=== PATIENT | male | born 1965 | race African-American/Black ===

== ENCOUNTER 2016-11-13 18:42 | Emergency (ER) | payer OTHER ==
[~2016-11-13] VITALS: Ht 182.9 cm; Wt 113.4 kg
--- NOTE | ~2016-11-13 | EKG ---
[address] [address] ELECTROCARDIOGRAM REPORT Name: BERT ROPER [facility] [id number] Admission: 11/13/16 Attend Phys: Discharge: 11/13/16 Date of : 65 Report #: [id number] THIS REPORT FOR: //name// [facility] ED Test Date: 2016-11-13 Test Time: 20:57:51 Pat Name: BERT ROPER Department: Room: Gender: M Intermediate Teacher: MZOOK : 1965 Requested By: Eda Corrales Order Number: [id number] MD: Roderick Broden Measurements Intervals [place] Rate: 70 P: 60 DC: 158 QRS: 51 QRSD: 98 T: 31 QT: 376 QTc: 406 Interpretive Statements Sinus rhythm Probable left atrial enlargement Borderline ST elevation, anterolateral leads Baseline wander in lead(s) V3 Compared to ECG 06/25/2004 19:54:46 No significant changes Electronically Signed On 11-15-2016 22:13:05 CDT by Roderick Borden [email or web address] <ELECTRONICALLY SIGNED> By: Roderick Borden MD 11/15/162212 56 56 Roderick Borden MD /EPI
[2016-11-13] MEDS ORDERED: PREDNISONE 20 M20 MG PO (21:09)
[2016-11-13 21:14] VITALS: BP 128/75
== END 2016-11-13 21:17 | disposition home or self-care (01) ==
LOC: ER 18:42
DX: S61.011A Laceration without foreign body of right thumb without damage to nail, initial encounter (principal); W45.8XXA Other foreign body or object entering through skin, initial encounter; Y93.89 Activity, other specified; Y92.89 Other specified places as the place of occurrence of the external cause; Y99.8 Other external cause status

== ENCOUNTER 2019-09-10 16:43 | Emergency (ER) | payer OTHER ==
[~2019-09-10] VITALS: Ht 167.6 cm; Wt 86.2 kg
[~2019-09-10 16:43] MED LIST: PREDNISONE 20 M20 MG PO
[2019-09-10] MEDS ORDERED: NOHOMEMEDICATIONS (16:50)
[2019-09-10 17:34] LABS: HEMATOCRIT 42.2 % (42.0-52.0); HEMOGLOBIN 14.7 gm/dL (14.0-18.0); MCH 29.5 pg (26.0-34.0); MCHC 34.8 g/dL (28.0-37.0); MCV 84.9 fL (80.0-100.0); PLATELET COUNT 232 thou/uL (150-400); RBC 4.97 mil/uL (4.50-6.00); RDW 12.1 % (10.5-14.5); WBC 3.7 thou/uL (4.0-11.0)
[2019-09-10 17:51] LABS: CREATININE 1.5 mg/dL (0.7-1.3); POTASSIUM 3.9 mmol/L (3.5-5.1)
[2019-09-10 17:55] LABS: ABSOLUTE NEUTROPHILS 1.5 thou/uL (1.4-8.2)
[2019-09-10 17:56] LABS: PLATELET ESTIMATE NORMAL
[2019-09-10 18:41] VITALS: BP 124/87
== END 2019-09-10 18:42 | disposition home or self-care (01) ==
LOC: ER 16:43
PROVIDERS: Emergency Medicine
DX: R68.2 Dry mouth, unspecified (principal); R42 Dizziness and giddiness; R11.0 Nausea; K21.9 Gastro-esophageal reflux disease without esophagitis; Z87.891 Personal history of nicotine dependence; Z79.899 Other long term (current) drug therapy

== ENCOUNTER 2021-04-22 14:30 | Emergency (ER) | payer OTHER ==
[~2021-04-22] VITALS: Ht 167.6 cm; Wt 53.5 kg
[~2021-04-22 14:30] MED LIST changes: +NOHOMEMEDICATIONS
[2021-04-22 15:05] LABS: BASOPHILS 0.5 % (0.0-2.0); EOSINOPHILS 0.1 % (0.0-3.0); HEMATOCRIT 39.4 % (42.0-52.0); HEMOGLOBIN 13.6 gm/dL (14.0-18.0); LYMPHOCYTES 15.1 % (24.0-44.0); MCH 30.3 pg (26.0-34.0); MCHC 34.5 g/dL (28.0-37.0); MCV 87.8 fL (80.0-100.0); PLATELET COUNT 266 thou/uL (150-400); POLYS 70.3 % (36.0-66.0); RBC 4.48 mil/uL (4.50-6.00); RDW 12.2 % (10.5-14.5); WBC 5.7 thou/uL (4.0-11.0)
[2021-04-22 15:06] LABS: URINE BILIRUBIN 2+ (Negative); URINE BLOOD 1+ (Negative); URINE CLARITY CLEAR; URINE COLOR YELLOW; URINE GLUCOSE-RANDOM* NEGATIVE (Negative); URINE KETONES 2+ (Negative); URINE LEUKOCYTES-REFLEX NEGATIVE (Negative); URINE NITRITE-REFLEX NEGATIVE (Negative); URINE PROTEIN (DIPSTICK) 1+ (Negative); URINE SPECIFIC GRAVITY 1.025 (1.005-1.035); URINE UROBILINOGEN 0.2 E.U./dl (0.2-1.0)
[2021-04-22 15:12] LABS: ICTOTEST (BILI CONFIRMATORY) Positive (Negative)
[2021-04-22 15:14] LABS: CALCIUM 9.3 mg/dL (8.5-10.1); CREATININE 1.2 mg/dL (0.7-1.3); POTASSIUM 3.9 mmol/L (3.5-5.1)
[2021-04-22 15:18] LABS: CASTS None Seen /LPF (None Seen); SQUAMOUS 0-3 Few /LPF (0-3); URINE RBC 3-10 Few /HPF (NONE SEEN); URINE WBC-REFLEX 0-5 Rare /HPF (0-5)
[2021-04-22 15:19] LABS: BACTERIA-REFLEX None Seen /HPF (None Seen); CRYSTALS None Seen /LPF (None Seen)
[2021-04-22 15:24] LABS: ALBUMIN 3.2 g/dL (3.4-5.0); DIRECT BILIRUBIN 0.2 mg/dL (<0.1-0.2); TOTAL BILIRUBIN 0.7 mg/dL (0.2-1.0); TOTAL PROTEIN 7.6 g/dL (6.4-8.2)
[2021-04-22] MEDS ORDERED: ZOFRAN ODT4 MG PO (17:48)
[2021-04-22 17:56] VITALS: BP 115/68
--- NOTE | 2021-04-23 07:59 | EKG ---
[place] [address] [facility] [employer] [place] [address] ELECTROCARDIOGRAM REPORT Name: BERT ROPER [id number] Admission: 04/22/21 Attend Phys: Discharge: 04/22/21 Date of : 65 Report #: [id number] [facility] ED Test Date: 2021-04-22 Test Time: 15:10:34 Pat Name: BERT ROPER Department: Room: Gender: M Data Warehousing Engineer: : 1965 Requested By: Isabel Donis Order Number: [id number] MD: Jersey Conway Measurements Intervals [place] Rate: 61 P: 76 NE: 156 QRS: 67 QRSD: 91 T: 59 QT: 364 QTc: 367 Interpretive Statements Sinus rhythm Low voltage, extremity leads Compared to ECG 11/13/2016 20:57:51 Low QRS voltage now present ST (T wave) deviation still present Electronically Signed On 04-23-2021 7:59:23 [employer] by Jersey Conway [email or web address] <ELECTRONICALLY SIGNED> By: Jersey Conway MD, [facility] 04/23/21 0759 1510 1510 Jersey Conway MD, FACC /EPI
== END 2021-04-22 18:03 | disposition home or self-care (01) ==
LOC: ER 14:30
PROVIDERS: Nurse Practitioner
DX: R55 Syncope and collapse (principal); R11.2 Nausea with vomiting, unspecified